=== PATIENT | female | born 1985 | race African-American/Black ===

== ENCOUNTER 2019-09-05 13:36 | Emergency (ER) | payer SELFPAY ==
[~2019-09-05] VITALS: Ht 160 cm; Wt 64.0 kg
[2019-09-05 13:43] VITALS: BP 108/84
[2019-09-05] MEDS ORDERED: HYDROCODONE/ACETAMINOPHEN 5/325MG TABLET PO ONE (14:30)
== END 2019-09-05 16:12 | disposition home or self-care (01) ==
LOC: ER 13:56
DX: S00.83XA Contusion of other part of head, initial encounter (principal); Y04.0XXA Assault by unarmed brawl or fight, initial encounter; Y93.89 Activity, other specified; Y92.89 Other specified places as the place of occurrence of the external cause; Y99.8 Other external cause status
CPT/HCPCS: 70486; 81025; 99284